=== PATIENT | male | born 1990 | race Caucasian/White ===

== ENCOUNTER 2018-10-06 14:58 | Inpatient (IN) | payer BC ==
[2018-10-06] VITALS (15 sets, daily range): BP systolic 105–150; BP diastolic 71–92
[~2018-10-06] VITALS: Ht 182.9 cm; Wt 78.9 kg
[~2018-10-06 14:58] MED LIST: BISA10SU60 RC; POLY17PO10 PO
[2018-10-06] MEDS ORDERED: CLINDAmcin 900mg/NS 50ml IVPB 50 ML IV ONE (15:20)
[2018-10-06] MEDS ORDERED: famotidine 20mg tablet PO ONE (15:20)
[2018-10-06] MEDS: ringers solution, lacted 1,000 ML IV SCH (15:25)
[2018-10-06] MEDS ORDERED: MIDAZolam 5mg/ml 2ml vial IV ONE (15:30)
[2018-10-06] MEDS ORDERED: OXYC-150 PO (15:56)
[2018-10-06] MEDS ORDERED: meperidine/PF 25mg/ml syringe ONE (16:07)
[2018-10-06] MEDS ORDERED: BUPIVAcaine/PF 2.5mg/ml (0.25%) 10ml vial ONE ×2 (16:11→18:03)
[2018-10-06] MEDS ORDERED: ringers solution, lacted 1,000 ML IV ONE (16:45)
[2018-10-06] MEDS ORDERED: ringers solution, lacted 1,000 ML IV SCH (17:21)
[2018-10-06] MEDS ORDERED: morphine 4 MG/ML inj SYRINge IV PRN ×2 (17:25)
[2018-10-06] MEDS ORDERED: labetalol 20mg/4ml (5mg/ml) syringe IV PRN (17:25)
[2018-10-06] MEDS ORDERED: ondansetron/PF 4mg/2ml inj IV PRN ×2 (17:25→19:15)
[2018-10-06] MEDS ORDERED: fentaNYL/PF 50MCG/1 ML 2ML syringe IV PRN (17:25)
[2018-10-06] MEDS ORDERED: hydrALAZINE 20mg/ml inj. IV PRN (17:25)
[2018-10-06] MEDS ORDERED: neostigmine methylsulfate 1 MG/ML 10ml vial ONE (17:50)
[2018-10-06] MEDS ORDERED: sevoflurane 250ml liquid IH ONE (17:50)
[2018-10-06] MEDS ORDERED: fentaNYL /PF 50mcg/ml 5ml ampule ONE (18:06)
[2018-10-06] MEDS ORDERED: midazolam 2 mg/2 ml injection ONE (18:06)
[2018-10-06] MEDS ORDERED: dexamethasone sod phosphate 4mg/ml inj. ONE (18:12)
[2018-10-06] MEDS ORDERED: rocuronium 10mg/ml inj IV ONE (18:13)
[2018-10-06] MEDS ORDERED: ondansetron/PF 4mg/2ml inj ONE (18:13)
[2018-10-06] MEDS ORDERED: LIDOcaine 1%/PF 5ML 10 MG/ML VIAL ONE (18:13)
[2018-10-06] MEDS ORDERED: propofol inj 20 ML IV ONE (18:13)
[2018-10-06] MEDS ORDERED: glycopyrrolate 0.2mg/ml inj ONE (18:33)
[2018-10-06] MEDS: fentaNYL/PF 50MCG/1 ML 2ML syringe IV PRN ×2 (19:36→19:42)
[2018-10-06] MEDS: HYDROmorphone/NS 1 mg/ml CADD 50 ML IV SCH ×3 (20:05→23:29)
[2018-10-06] MEDS: temazepam 15mg capsule PO PRN (23:24)
[2018-10-07] VITALS (7 sets, daily range): BP systolic 95–131; BP diastolic 58–77
[2018-10-07] MEDS: ketorolac trometh. 30mg/ml inj. IV SCH ×4 (01:34→20:12)
[2018-10-07] MEDS: HYDROmorphone/NS 1 mg/ml CADD 50 ML IV SCH ×8 (05:42→23:00)
[2018-10-07] MEDS ORDERED: LORazepam 2 mg/ml vial IV ONE (06:00)
[2018-10-07] MEDS ORDERED: famotidine/PF 10 mg/ml inj IV ONE (06:00)
[2018-10-07] MEDS: ringers solution, lacted 1,000 ML IV SCH (13:48)
[2018-10-07] MEDS: temazepam 15mg capsule PO PRN (22:02)
[2018-10-08] MEDS: HYDROmorphone/NS 1 mg/ml CADD 50 ML IV SCH ×12 (01:00→23:00)
[2018-10-08] MEDS: ketorolac trometh. 30mg/ml inj. IV SCH ×4 (02:00→20:24)
[2018-10-08 07:45] VITALS: BP 125/77
[2018-10-08] MEDS: CADD PCA waste documentation MC SCH (12:37)
[2018-10-08 12:43] VITALS: BP 106/69
[2018-10-08 18:00] VITALS: BP 122/82
[2018-10-08] MEDS: temazepam 15mg capsule PO PRN (23:17)
[2018-10-09] VITALS: BP 116/74
[2018-10-09] MEDS: HYDROmorphone/NS 1 mg/ml CADD 50 ML IV SCH ×6 (01:00→11:00)
[2018-10-09] MEDS: ketorolac trometh. 30mg/ml inj. IV SCH ×2 (02:00→08:33)
[2018-10-09] MEDS: CADD PCA waste documentation MC SCH (05:44)
[2018-10-09] MEDS: oxyCODONE/APAP 10/325mg tablet PO PRN ×2 (05:52→11:54)
[2018-10-09 07:00] VITALS: BP 119/68
[2018-10-09 11:00] VITALS: BP 124/70
== END 2018-10-09 14:51 | disposition home or self-care (01) | DRG 355 ==
LOC: PAS 14:58 → SUR 3N 19:15
PROVIDERS: ADMIT Surgery; ATTEND Surgery
PROC: 0WUF4JZ Supplement Abdominal Wall with Synthetic Substitute, Percutaneous Endoscopic Approach (ICD-10-PCS; principal; 2018-10-06 17:50)
DX: K42.0 Umbilical hernia with obstruction, without gangrene (principal); Z88.0 Allergy status to penicillin; Z88.1 Allergy status to other antibiotic agents; Z88.2 Allergy status to sulfonamides; Z90.49 Acquired absence of other specified parts of digestive tract
CPT/HCPCS: 76705; 87070; A7000; C1713; C1781; G0378; J0690; J1100; J1170; J1885; J2001; J2060; J2175; J2250; J2405; J2704; J2710; J3010; J3490; J7030; J7120